=== PATIENT | female | born 1990 | race Caucasian/White ===

== ENCOUNTER 2016-09-17 00:25 | Emergency (ER) | payer OTHER, MEDICAID ==
[2016-09-17 02:40] LABS: ABSOLUTE EOSINOPHILS # (AUTO) 0.1 10^3/uL (0.0-0.6); ABSOLUTE LYMPHOCYTES (AUTO) 1.9 10^3/uL (0.5-4.7); ABSOLUTE MONOCYTES (AUTO) 0.8 10^3/uL (0.1-1.4); ABSOLUTE NEUT (AUTO) 5.7 10^3/uL (1.7-8.2); BASOPHILS % (AUTO) 0.4 % (0-2); HEMATOCRIT 35.4 % (36.0-47.0); HEMOGLOBIN 12.2 g/dL (12.0-15.5); HGB HCT DIFFERENCE 1.2; LYMPHOCYTES % (AUTO) 22.8 % (13-45); MEAN CORPUSCULAR HEMOGLOBIN 28.9 pg (27.0-33.4); MEAN CORPUSCULAR HGB CONC 34.4 g/dL (32.0-36.0); MEAN CORPUSCULAR VOLUME 84 fl (80-97); MONOCYTES % (AUTO) 9.2 % (3-13); RED BLOOD COUNT 4.21 10^6/uL (3.72-5.28); RED CELL DISTRIBUTION WIDTH 14.4 % (11.5-14.0); SEGMENTED NEUTROPHILS % (AUTO) 66.6 % (42-78); WHITE BLOOD COUNT 8.5 10^3/uL (4.0-10.5)
[2016-09-17 02:50] LABS: ALANINE AMINOTRANSFERASE 36 U/L (9-52); ALBUMIN 4.4 g/dL (3.5-5.0); ALKALINE PHOSPHATASE 66 U/L (38-126); ANION GAP 12 (5-19); APPEARANCE,URINE CLEAR; ASPARTATE AMINO TRANSFERASE 22 U/L (14-36); BILIRUBIN,TOTAL 0.5 mg/dL (0.2-1.3); BILIRUBIN,URINE NEGATIVE (NEGATIVE); BLOOD UREA NITROGEN 5 mg/dL (7-20); CALCIUM 9.4 mg/dL (8.4-10.2); CARBON DIOXIDE 21 mmol/L (22-30); CHLORIDE 106 mmol/L (98-107); CREATININE RESULT 0.49 mg/dL (0.52-1.25); GLUCOSE 57 mg/dL (75-110); GLUCOSE, URINE NEGATIVE (NEGATIVE); KETONES,URINE NEGATIVE (NEGATIVE); LEUKOCYTE ESTERASE,URINE NEGATIVE (NEGATIVE); NITRITE,URINE NEGATIVE (NEGATIVE); POTASSIUM 3.5 mmol/L (3.6-5.0); PROTEIN,URINE NEGATIVE (NEGATIVE); SODIUM 139.3 mmol/L (137-145); TOTAL PROTEIN 7.5 g/dL (6.3-8.2); URINE SPECIFIC GRAVITY 1.025; UROBILINOGEN,URINE NEGATIVE mg/dL (<2.0)
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
[2016-09-17 05:28] VITALS: BP 134/89
== END 2016-09-17 05:15 | disposition home or self-care (01) ==
LOC: ER 00:25
DX: O20.9 Hemorrhage in early pregnancy, unspecified (principal); Z3A.15 15 weeks gestation of pregnancy; Z88.0 Allergy status to penicillin; Z90.49 Acquired absence of other specified parts of digestive tract
CPT/HCPCS: 36415; 76805; 80053; 81001; 84702; 85025; 86900; 86901; 93976; 99284

== ENCOUNTER 2017-01-18 16:11 | Emergency (ER) | payer MEDICAID ==
[2017-01-18 17:42] LABS: ABSOLUTE EOSINOPHILS # (AUTO) 0.1 10^3/uL (0.0-0.6); ABSOLUTE LYMPHOCYTES (AUTO) 1.3 10^3/uL (0.5-4.7); ABSOLUTE MONOCYTES (AUTO) 0.9 10^3/uL (0.1-1.4); ABSOLUTE NEUT (AUTO) 4.9 10^3/uL (1.7-8.2); BASOPHILS % (AUTO) 0.5 % (0-2); EOSINOPHILS % (AUTO) 0.8 % (0-6); HEMATOCRIT 35.5 % (36.0-47.0); HEMOGLOBIN 11.7 g/dL (12.0-15.5); HGB HCT DIFFERENCE -0.4; LYMPHOCYTES % (AUTO) 17.8 % (13-45); MEAN CORPUSCULAR HEMOGLOBIN 27.5 pg (27.0-33.4); MEAN CORPUSCULAR HGB CONC 33.1 g/dL (32.0-36.0); MEAN CORPUSCULAR VOLUME 83 fl (80-97); MONOCYTES % (AUTO) 12.1 % (3-13); RED BLOOD COUNT 4.28 10^6/uL (3.72-5.28); RED CELL DISTRIBUTION WIDTH 13.8 % (11.5-14.0); SEGMENTED NEUTROPHILS % (AUTO) 68.8 % (42-78); WHITE BLOOD COUNT 7.2 10^3/uL (4.0-10.5)
--- NOTE | 2017-01-18 17:56 | RADIOLOGY REPORT (SQ) ---
EXAM DESCRIPTION: CHEST PA/LAT COMPLETED DATE/TIME: 01/18/2017 5:48 pm REASON FOR STUDY: Heartburn and chest pain COMPARISON: 10/25/2014 EXAM PARAMETERS: NUMBER OF VIEWS: two views TECHNIQUE: Digital Frontal and Lateral radiographic views of the chest acquired. RADIATION DOSE: NA LIMITATIONS: none FINDINGS: LUNGS AND PLEURA: No opacities, masses or pneumothorax. No pleural effusion. MEDIASTINUM AND HILAR STRUCTURES: No masses or contour abnormalities. HEART AND VASCULAR STRUCTURES: Heart normal size. No evidence for failure. BONES: No acute findings. HARDWARE: None in the chest. OTHER: No other significant finding. IMPRESSION: NO SIGNIFICANT RADIOGRAPHIC FINDING IN THE CHEST. TECHNICAL DOCUMENTATION: JOB ID: [id number] [employer]- All Rights Reserved
[2017-01-18 17:57] LABS: APPEARANCE,URINE CLOUDY; BILIRUBIN,URINE NEGATIVE (NEGATIVE); GLUCOSE, URINE NEGATIVE (NEGATIVE); KETONES,URINE 20 mg/dL (NEGATIVE); LEUKOCYTE ESTERASE,URINE NEGATIVE (NEGATIVE); NITRITE,URINE NEGATIVE (NEGATIVE); PROTEIN,URINE 30 mg/dL (NEGATIVE); URINE SPECIFIC GRAVITY 1.034; UROBILINOGEN,URINE NEGATIVE mg/dL (<2.0)
[2017-01-18 18:00] LABS: ALANINE AMINOTRANSFERASE 40 U/L (9-52); ALBUMIN 3.5 g/dL (3.5-5.0); ALKALINE PHOSPHATASE 189 U/L (38-126); ANION GAP 12 (5-19); ASPARTATE AMINO TRANSFERASE 61 U/L (14-36); BILIRUBIN,DIRECT 0.3 mg/dL (0.0-0.4); BILIRUBIN,TOTAL 0.5 mg/dL (0.2-1.3); BLOOD UREA NITROGEN 4 mg/dL (7-20); CALCIUM 8.7 mg/dL (8.4-10.2); CARBON DIOXIDE 18 mmol/L (22-30); CHLORIDE 107 mmol/L (98-107); CREATININE RESULT 0.48 mg/dL (0.52-1.25); GLUCOSE 87 mg/dL (75-110); LIPASE 50.3 U/L (23-300); POTASSIUM 3.5 mmol/L (3.6-5.0); SODIUM 137.4 mmol/L (137-145); TOTAL PROTEIN 7.1 g/dL (6.3-8.2)
[2017-01-18 18:12] LABS: CREATINE KINASE MB < 0.22 ng/mL (<4.55); TROPONIN I < 0.012 ng/mL
[2017-01-18] MEDS ORDERED: NORMAL SALINE 1000 ML 1,000 ML IV ONE (19:12)
[2017-01-18] MEDS ORDERED: ONDANSETRON HCL INJ/PF 4 MG/2 ML SDV IV ONE (19:12)
--- NOTE | 2017-01-18 20:03 | ER Document Report ---
ED GI/ - General Mode of Arrival: Ambulatory Information source: Patient TRAVEL OUTSIDE OF THE [place] IN LAST 30 DAYS: No - HPI Patient complains to provider of: Vomiting, Other - acid reflux Onset: Other - 3 weeks ago Associated symptoms: Other - see notes above <NATHALIA HAYES - Last Filed: 01/19/17 00:05> <VERONICAJANISBHUPENDRA - Last Filed: 01/19/17 00:10> - General Chief Complaint: Nausea/Vomiting Stated Complaint: VOMITING Time Seen by Provider: 01/18/17 19:50 Notes: 26 year old female presents to the ED complaining of heartburn and vomiting that started 3 weeks ago. Patient reports that the acid reflux is causing her to vomit 'acid' which is irritating her throat. Patient has tried Tums and Zantac with no relief. [facility] where she was given Reglan, but states that it has not helped. Patient is only able to sleep on her left side. (NATHALIA HAYES) - Related Data Allergies/Adverse Reactions: Penicillins Allergy (Verified 01/18/17 16:29) topiramate [From Topamax] Allergy (Verified 01/18/17 16:29) Past Medical History - General Information source: Patient - Social History Smoking Status: Never Smoker Chew tobacco use (# tins/day): No Frequency of alcohol use: None Drug Abuse: None Family History: Reviewed & Not Pertinent Patient has suicidal ideation: No Patient has homicidal ideation: No - Past Medical History Cardiac Medical History: Reports: Hx Hypertension Pulmonary Medical History: Reports: Hx Bronchitis Renal/ Medical History: Denies: Hx Peritoneal Dialysis Past Surgical History: Reports: Hx Section - x2, Hx Cholecystectomy - Immunizations Hx Diphtheria, Pertussis, Tetanus Vaccination: Yes <NATHALIA HAYES - Last Filed: 01/19/17 00:05> Review of Systems - Review of Systems Constitutional: No symptoms reported EENT: See HPI, Throat pain Cardiovascular: No symptoms reported Respiratory: No symptoms reported Gastrointestinal: See HPI, Vomiting, Other - acid reflux Genitourinary: No symptoms reported Female Genitourinary: No symptoms reported Musculoskeletal: No symptoms reported Skin: No symptoms reported Hematologic/Lymphatic: No symptoms reported Neurological/Psychological: No symptoms reported -: Yes All other systems reviewed and negative <NATHALIA HAYES - Last Filed: 01/19/17 00:05> Physical Exam <HAYES,NATHALIA - Last Filed: 01/19/17 00:05> <BHUPENDRA PACKER - Last Filed: 01/19/17 00:10> - Vital signs Vitals: Temp Pulse Resp BP Pulse Ox 98.1 F 122 H 18 148/98 H 98 01/18/17 16:30 01/18/17 16:30 01/18/17 16:30 01/18/17 16:30 01/18/17 16:30 - Notes Notes: GENERAL: Alert, interacts well. No acute distress. HEAD: Normocephalic, atraumatic. EYES: Pupils equal, round, and reactive to light. Extraocular movements intact. ENT: Oral mucosa moist, tongue midline. NECK: Full range of motion. Supple. Trachea midline. LUNGS: Clear to auscultation bilaterally, no wheezes, rales, or rhonchi. No respiratory distress. HEART: Regular rhythm, but mildly tachycardic. 1/6 systolic murmur. No gallops or rubs. ABDOMEN: Gravid consistent with dates. Soft, non-tender. Non-distended. EXTREMITIES: Moves all 4 extremities spontaneously. No edema. No cyanosis. NEUROLOGICAL: Alert and oriented x3. Normal speech. PSYCH: Normal affect, normal mood. SKIN: Warm, dry, normal turgor. No rashes or lesions noted. (NATHALIA HAYES) Course - Laboratory Result Diagrams: 01/18/17 17:30 01/18/17 17:30 <NATHALIA HAYES - Last Filed: 01/19/17 00:05> - Laboratory Result Diagrams: 01/18/17 17:30 01/18/17 17:30 <BHUPENDRA PACKER - Last Filed: 01/19/17 00:10> - Re-evaluation Re-evalutation: 01/18/17 20:19 CBC shows anemia with hemoglobin 11.7, CMP shows low CO2 at 18, patient was hydrated with a liter normal saline, LFTs only slightly elevated and no evidence of preeclampsia, enzymes negative, chest x-ray no acute process. Pain decreased with GI cocktail. Patient will be started on Zantac twice a day, counseled on diet for heartburn and discharged home. (BHUPENDRA PACKER) - Vital Signs Vital signs: Temp Pulse Resp BP Pulse Ox 97.1 F 90 15 146/89 H 98 01/18/17 20:50 01/18/17 20:50 01/18/17 20:50 01/18/17 20:50 01/18/17 16:30 - Laboratory Laboratory results interpreted by me: 01/18/17 01/18/17 01/18/17 17:20 17:30 17:30 Hgb 11.7 L Hct 35.5 L Potassium 3.5 L Carbon Dioxide 18 L BUN 4 L Creatinine 0.48 L AST 61 H Alkaline Phosphatase 189 H Urine Protein 30 H Urine Ketones 20 H Urine Ascorbic Acid 20 H Discharge <NATHALIA HAYES - Last Filed: 01/19/17 00:05> <BHUPENDRA PACKER - Last Filed: 01/19/17 00:10> - Discharge Clinical Impression: Vomiting affecting , Dehydration during , Heartburn during in third trimester induced hypertension Qualifiers: Trimester: third trimester Qualified Code(s): O13.3 - Gestational [- induced] hypertension without significant proteinuria, third trimester Condition: Stable Disposition: HOME, SELF-CARE Additional Instructions: Reflux Disease (GERD) Gastro-Esophageal Reflux Disease (GERD) is caused by stomach acid refluxing back up into the esophagus. The valve at the end of the esophagus may be weak. This is common in persons with a hiatal hernia. GERD symptoms can include indigestion, chest pain, heartburn, or food "sticking." Certain foods, alcohol, and aspirin can make GERD worse. Treatment depends on the severity. Usually, antacids or acid-suppressing medicines are used. When the esophagus is acutely inflamed, the physician will often prescribe membrane-protective drugs such as Carafate. Some patients benefit from medication such as Reglan that tightens the valve at the top of the stomach. Avoid those foods that bring on your symptoms. For many people, these foods are coffee, chocolate, onions, garlic, and carbonated drinks. Don't use alcohol, aspirin, caffeine, or tobacco. Don't eat late at night -- within 4 hours of bedtime. Don't over-eat. If necessary, elevate the head of your bed about 4 inches so that stomach acid will not roll up into your esophagus. Call the doctor if you develop severe chest pain, inability to swallow fluids, fever, or worsening symptoms. Please take Zantac 150 mg twice a day. Prescriptions: Ondansetron [Zofran Odt 4 mg Tablet] 1 - 2 tab PO Q4H PRN #15 tab.rapdis PRN Reason: For Nausea/Vomiting Referrals: LUKE HENNING MD [Primary Care Provider] - Follow up in 3-5 days Scribe Attestation: 01/19/17 00:10 I personally performed the services described in the documentation, reviewed and edited the documentation which was dictated to the scribe in my presence, and it accurately records my words and actions. (BHUPENDRA PACKER) Scribe Documentation - Scribe Written by Juan:: Juan Rosenthal, 01/18/20172005 acting as scribe for :: Juanita <NATHALIA HAYES - Last Filed: 01/19/17 00:05>
[2017-01-18] MEDS ORDERED: LIDOCAINE 2% VISCOUS SOLN 20 ML UDCUP PO ONE (20:17)
[2017-01-18] MEDS ORDERED: METOCLOPRAMIDE HCL ORAL SOLN 10 MG/10 ML UDCUP PO ONE (20:17)
[2017-01-18] MEDS ORDERED: MAG HYDROX/AL HYDROX/SIMETH SUSP 30 ML UDCUP PO ONE (20:17)
[2017-01-18 20:51] VITALS: BP 146/89
--- NOTE | 2017-01-18 22:20 | EKG REPORT ---
SEVERITY:- OTHERWISE NORMAL ECG - SINUS TACHYCARDIA : Confirmed by: Sanam Mishra 18-Jan-2017 22:19:52
== END 2017-01-18 20:50 | disposition home or self-care (01) ==
LOC: ER 16:11
DX: O13.3 Gestational [pregnancy-induced] hypertension without significant proteinuria, third trimester (principal); O21.1 Hyperemesis gravidarum with metabolic disturbance; R12 Heartburn; Z88.0 Allergy status to penicillin; Z90.49 Acquired absence of other specified parts of digestive tract
CPT/HCPCS: 93005; 99284; 96374; 36415; 82553; 83690; 85025; 80053; 81001; 84484; 71020; 93010; J3490 ×3; J2405; J7030

== ENCOUNTER 2017-01-19 09:01 | Outpatient (CLI) | payer MEDICAID ==
[2017-01-19 09:33] LABS: APPEARANCE,URINE SLIGHTLY-CLOUDY; BILIRUBIN,URINE SMALL (NEGATIVE); GLUCOSE, URINE NEGATIVE (NEGATIVE); KETONES,URINE NEGATIVE (NEGATIVE); LEUKOCYTE ESTERASE,URINE NEGATIVE (NEGATIVE); NITRITE,URINE NEGATIVE (NEGATIVE); PROTEIN,URINE NEGATIVE (NEGATIVE); URINE SPECIFIC GRAVITY 1.019; UROBILINOGEN,URINE NEGATIVE mg/dL (<2.0)
[2017-01-19 09:49] LABS: URINE METHADONE SCREEN NEGATIVE; URINE OPIATES LOW NEGATIVE; URINE PHENCYCLIDINE SCREEN NEGATIVE
[2017-01-19 09:53] LABS: URINE BARBITURATES SCREEN UNCONFIRMED POSITIVE
--- NOTE | 2017-01-19 10:39 | Non Stress Test Report ---
Non Stress Test Datetime Report Generated by CPN: 01/19/2017 10:38 DEMOGRAPHIC EGA NST: 32.0 INDICATION Indication for Study: Ordered by Provider MONITORING Monitor Explained: Monitor Explained; Test Explained; Patient Verbalized Understanding Time on Monitor: 01/19/2017 10:10 Time off Monitor: 01/19/2017 10:30 NST Duration: 20 NST INTERVENTIONS NST Interventions: PO Hydration; Reposition Patient Physician Notified NST: Dr. Mann BABY A: [id number] BABY A Movement : Present Contraction Frequency : 0 FHR Baseline : 140 Accelerations : 15X15 Decelerations : None Variability : Moderate 6-25bpm NST Review: Meets Criteria for Reactive NST NST Review and Verified By : GOVIND Piper Results: Reactive NST REPORT Report Trigger: Send Report
== END 2017-01-19 10:47 | disposition home or self-care (01) ==
LOC: LC 09:01
PROVIDERS: ATTEND Obstetrics & Gynecology
DX: Z34.93 Encounter for supervision of normal pregnancy, unspecified, third trimester (principal)
CPT/HCPCS: 59025; 80307; 81001

== ENCOUNTER 2017-02-28 14:00 | Outpatient (CLI) | payer MEDICAID ==
[2017-02-28 14:46] LABS: ABSOLUTE EOSINOPHILS # (AUTO) 0.2 10^3/uL (0.0-0.6); ABSOLUTE LYMPHOCYTES (AUTO) 1.3 10^3/uL (0.5-4.7); ABSOLUTE MONOCYTES (AUTO) 0.7 10^3/uL (0.1-1.4); ABSOLUTE NEUT (AUTO) 7.1 10^3/uL (1.7-8.2); BASOPHILS % (AUTO) 0.3 % (0-2); EOSINOPHILS % (AUTO) 2.4 % (0-6); LYMPHOCYTES % (AUTO) 14.1 % (13-45); MEAN CORPUSCULAR HEMOGLOBIN 27.4 pg (27.0-33.4); MEAN CORPUSCULAR HGB CONC 34.5 g/dL (32.0-36.0); MEAN CORPUSCULAR VOLUME 79 fl (80-97); MONOCYTES % (AUTO) 7.8 % (3-13); RED BLOOD COUNT 3.66 10^6/uL (3.72-5.28); SEGMENTED NEUTROPHILS % (AUTO) 75.4 % (42-78); WHITE BLOOD COUNT 9.4 10^3/uL (4.0-10.5)
[2017-02-28 14:59] LABS: ALANINE AMINOTRANSFERASE 24 U/L (9-52); ALBUMIN 3.5 g/dL (3.5-5.0); ALKALINE PHOSPHATASE 195 U/L (38-126); ANION GAP 11 (5-19); ASPARTATE AMINO TRANSFERASE 17 U/L (14-36); BILIRUBIN,DIRECT 0.3 mg/dL (0.0-0.4); BILIRUBIN,TOTAL 0.4 mg/dL (0.2-1.3); BLOOD UREA NITROGEN 8 mg/dL (7-20); CALCIUM 8.6 mg/dL (8.4-10.2); CARBON DIOXIDE 19 mmol/L (22-30); CHLORIDE 108 mmol/L (98-107); CREATININE RESULT 0.43 mg/dL (0.52-1.25); GLUCOSE 100 mg/dL (75-110); LDH 366 U/L (313-618); POTASSIUM 3.7 mmol/L (3.6-5.0); SODIUM 138.1 mmol/L (137-145); TOTAL PROTEIN 6.9 g/dL (6.3-8.2); URIC ACID 3.5 mg/dL (2.5-6.2)
[2017-02-28 15:01] LABS: APPEARANCE,URINE SLIGHTLY-CLOUDY; BILIRUBIN,URINE NEGATIVE (NEGATIVE); CALCIUM OXALATE CRYSTALS,URINE FEW /HPF; GLUCOSE, URINE NEGATIVE (NEGATIVE); KETONES,URINE NEGATIVE (NEGATIVE); LEUKOCYTE ESTERASE,URINE NEGATIVE (NEGATIVE); NITRITE,URINE NEGATIVE (NEGATIVE); PROTEIN,URINE NEGATIVE (NEGATIVE); URINE SPECIFIC GRAVITY 1.027
[2017-02-28] MEDS ORDERED: ACETAMINOPHEN 325 MG TABLET PO ONE (15:23)
[2017-02-28 15:24] LABS: URINE BARBITURATES SCREEN NEGATIVE; URINE METHADONE SCREEN NEGATIVE; URINE OPIATES LOW NEGATIVE; URINE PHENCYCLIDINE SCREEN NEGATIVE
[2017-02-28 15:42] LABS: URINE CREATININE 184.7 mg/dL (16-327); URINE PROTEIN 8.5 mg/dL (<12)
[2017-02-28] MEDS ORDERED: ACETAMINOPHEN 325 MG TABLET ONE (15:52)
--- NOTE | 2017-02-28 16:12 | Non Stress Test Report ---
Non Stress Test Datetime Report Generated by CPN: 02/28/2017 16:12 DEMOGRAPHIC EGA NST: 37.5 INDICATION Indication for Study: Ordered by Provider; Other Indication for Study (NST) Other: Labor Check MONITORING Monitor Explained: Monitor Explained; Test Explained; Patient Verbalized Understanding Time on Monitor: 02/28/2017 14:22 Time off Monitor: 02/28/2017 15:46 NST Duration: 84 NST INTERVENTIONS NST Interventions: None Physician Notified NST: Dr Mann BABY A: [id number] BABY A Movement : Present Contraction Frequency : none FHR Baseline : 150 Accelerations : 15X15 Decelerations : None Variability : Moderate 6-25bpm NST Review: Meets Criteria for Reactive NST NST Review and Verified By : Jovi bueno, RN NST Results: Reactive NST REPORT Report Trigger: Send Report
== END 2017-02-28 15:56 | disposition home or self-care (01) ==
LOC: LC 14:00
PROVIDERS: ATTEND Obstetrics & Gynecology
PROC: 4A1HXCZ Monitoring of Products of Conception, Cardiac Rate, External Approach (ICD-10-PCS; principal; 2017-02-28)
DX: Z36 Encounter for antenatal screening of mother (principal); Z3A.37 37 weeks gestation of pregnancy
CPT/HCPCS: 59025; 36415; 83615; 84156; 84550; 82570; 85025; 80053; 81001; 80307; J3490

== ENCOUNTER 2017-03-03 11:44 | Inpatient (IN) | payer MEDICAID ==
[~2017-03-03 11:44] MED LIST: PHENYLEPHRINE HCL INJ/PF 10 MG/1 ML SDV ONE
[2017-03-03] MEDS: RINGERS SOLUTION,LACTATED 1,000 ML IV PRN ×2 (12:51→18:53)
[2017-03-03 13:10] LABS: URINE BARBITURATES SCREEN NEGATIVE; URINE METHADONE SCREEN NEGATIVE; URINE OPIATES LOW NEGATIVE; URINE PHENCYCLIDINE SCREEN NEGATIVE
[2017-03-03 13:22] LABS: HEMATOCRIT 29.9 % (36.0-47.0); HGB HCT DIFFERENCE 0.1; MEAN CORPUSCULAR HEMOGLOBIN 26.9 pg (27.0-33.4); MEAN CORPUSCULAR HGB CONC 33.4 g/dL (32.0-36.0); MEAN CORPUSCULAR VOLUME 80 fl (80-97); RED BLOOD COUNT 3.71 10^6/uL (3.72-5.28); RED CELL DISTRIBUTION WIDTH 15.2 % (11.5-14.0); WHITE BLOOD COUNT 8.2 10^3/uL (4.0-10.5)
[2017-03-03 13:26] LABS: URINE CREATININE 55.5 mg/dL (16-327); URINE PROTEIN 15.2 mg/dL (<12)
[2017-03-03] MEDS ORDERED: MISOPROSTOL 0.2 MG TABLET ONE (13:34)
[2017-03-03] MEDS ORDERED: CEFAZOLIN 2 GM/D5W RTU 0 GM/0 ML RTUPB IV ONE (13:34)
[2017-03-03] MEDS ORDERED: CITRIC ACID/SODIUM CITRATE ORAL SOLN 15 ML UDCUP ONE ×2 (13:34→14:56)
[2017-03-03 13:40] LABS: ALANINE AMINOTRANSFERASE 17 U/L (9-52); ALBUMIN 3.6 g/dL (3.5-5.0); ALKALINE PHOSPHATASE 202 U/L (38-126); ANION GAP 11 (5-19); ASPARTATE AMINO TRANSFERASE 18 U/L (14-36); BILIRUBIN,DIRECT 0.3 mg/dL (0.0-0.4); BILIRUBIN,TOTAL 0.5 mg/dL (0.2-1.3); BLOOD UREA NITROGEN 2 mg/dL (7-20); CALCIUM 9.3 mg/dL (8.4-10.2); CARBON DIOXIDE 20 mmol/L (22-30); CHLORIDE 106 mmol/L (98-107); CREATININE RESULT 0.41 mg/dL (0.52-1.25); GLUCOSE 77 mg/dL (75-110); LDH 381 U/L (313-618); POTASSIUM 4.1 mmol/L (3.6-5.0); SODIUM 136.6 mmol/L (137-145); URIC ACID 3.9 mg/dL (2.5-6.2)
[2017-03-03] MEDS ORDERED: KETOROLAC TROMETHAMINE INJ/PF 30 MG/1 ML SDV ONE (14:53)
[2017-03-03] MEDS ORDERED: FENTANYL CITRATE INJ/PF 100 MCG/2 ML AMPUL ONE (14:53)
[2017-03-03] MEDS ORDERED: OXYTOCIN 10 UNIT/ML VIAL ONE (14:53)
[2017-03-03] MEDS ORDERED: FENTANYL CITRATE INJ/PF 250 MCG/5 ML AMPULE ONE (14:53)
[2017-03-03] MEDS ORDERED: OXYTOCIN/NORMAL SALINE 20 UNIT/1,000 ML RTUINJ ONE (14:54)
[2017-03-03] MEDS ORDERED: EPHEDRINE SULFATE INJ 50 MG/1 ML AMPULE ONE (14:54)
[2017-03-03] MEDS ORDERED: ONDANSETRON HCL INJ/PF 4 MG/2 ML SDV ONE (14:54)
[2017-03-03] MEDS ORDERED: MIDAZOLAM 2 MG/2 ML INJ ONE (14:54)
[2017-03-03] MEDS ORDERED: ACETAMINOPHEN 100 ML IV ONE (14:54)
[2017-03-03] MEDS ORDERED: CEFAZOLIN 2 GM/D5W RTU 2 GM/50 ML RTUPB IV ONE (14:56)
[2017-03-03] MEDS ORDERED: NALBUPHINE HCL INJ 10 MG/1 ML AMPULE ONE (17:40)
--- NOTE | 2017-03-03 17:53 | Brief Operative Note ---
BRIEF OPERATIVE REPORT DATE OF SURGERY: 03/03/17 TIME OF SURGERY: 17:00 PREOPERATIVE DIAGNOSIS: CHTN with superimposed preE, H/o C/S x 2, PUND at 38+ 1ega POSTOPERATIVE DIAGNOSIS: FABIOLA - delivered SURGEON: CARLIE ROMO FINDINGS: Normal tubes and ovaries, very thin lower uterine segment - see through in areas, VMI delivered with Apgars 7/9, Weight 7/9, normal uterus, no fibroids, IVF 2000ml, UOP 500ml COMPLICATIONS: None ESTIMATED BLOOD LOSS: 500ml TISSUE REMOVED OR ALTERED: placenta and cord sent to pathology TECHNICAL PROCEDURE: Repeat LTCS
[2017-03-03] MEDS ORDERED: DIPH/PERTUSS(ACELL)/TETANUS VAC/PF 0.5 ML SYR (>=10YO) IM PRN (17:55)
[2017-03-03] MEDS ORDERED: OXYCODONE-ACETAMINOPHEN 5-325 MG TABLET PO PRN (17:55)
[2017-03-03] MEDS ORDERED: OXYTOCIN/NORMAL SALINE 1,000 ML IV PRN (17:55)
[2017-03-03] MEDS ORDERED: PROMETHAZINE HCL INJ 25 MG/1 ML VIAL IV PRN (17:55)
[2017-03-03] MEDS ORDERED: SIMETHICONE 80 MG TAB.CHEW PO PRN (17:55)
[2017-03-03] MEDS ORDERED: MEASLES,MUMPS&RUBELLA VACC/PF 0.5 ML VIAL SUBCUT PRN (17:55)
[2017-03-03] MEDS ORDERED: ACETAMINOPHEN 325 MG TABLET PO PRN (17:55)
[2017-03-03] MEDS ORDERED: ACETAMINOPHEN 100 ML IV PRN (17:55)
[2017-03-03] MEDS ORDERED: MORPHINE SULFATE 10 MG/ML INJ ONE ×2 (18:18→19:04)
[2017-03-03] MEDS: DOCUSATE SODIUM 100 MG CAPSULE PO SCH (18:24)
[2017-03-03] MEDS ORDERED: PROPOFOL INJ 200 MG/20 ML VIAL IV ONE (18:25)
--- NOTE | 2017-03-03 19:50 | Admission Physical ---
Datetime Report Generated by CPN: 03/03/2017 19:50 CURRENT ADMISSION Chief Complaint: Signs/Symptoms Gestational HTN Admit Plan: Admit to Unit; Initiate Section Protocol ALLERGIES Medication Allergies: Yes Medication Allergies: Penicillins (03/03/2017); topiramate (03/03/2017) Medication Allergies: Penicillins (01/18/2017); topiramate (01/18/2017) Latex: No Latex Allergies Food Allergies: none OBSTETRICAL HISTORY EDC: 03/16/2017 00:00 : 4 Para: 2 Term: 1 : 1 SAB: 1 IAB: 0 Ectopic: 0 Livin Cesareans: 2 VBACs: 0 Multiple Births: 0 Gestational Diabetes: No Rh Sensitization: No Incompetent Cervix: No VA: No Infertility: No ART Treatment: No Uterine Anomaly: Yes IUGR: No Hx Previous C/S: Yes Macrosomia: No Hx Loss/Stillborn: No PIH: Yes Hx : No Placenta Previa/Abruption: No Depression/PP Depression: No PTL/PROM: Yes Post Hemorrhage: No Current Procedures: Ultrasound; NST Obstetrical History Comments: G1- 34 weeks C/S PIH G2-SAB 38 weeks C/S PIH SEE RECORDS Alcohol: No Marijuana : No Cocaine: No Other Illicit Drugs: No Cigarettes: Never Smoker. 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 Surgery: No Heart Disease: No Hosp/Surgery: Yes Autoimmune Disorder: No Anesthetic Complications: No Kidney Disease: No Abnormal Pap Smear: No Neuro/Epilepsy: No Psychiatric Disorders: Yes Other Medical Diseases: No Hepatitis/Liver Disease: No Significant Family History: No Varicosities/Phlebitis: No Trauma/Violence : No Thyroid Dysfunction: No Medical History Comments: CHTN; previous C/S x2; gallbladder removed 2012, anxiety, ADHD INFECTIOUS HISTORY Gonorrhea: No Genital Herpes: No Chlamydia: No Tuberculosis: No Syphilis: No Hepatitis: No HIV/AIDS Exposure: No Rash or Viral Illness: No HPV: No PHYSICAL EXAM General: Normal HEENT: Normal Neurologic: Normal Thyroid: Normal Heart: Normal Lungs: Normal Breast: Deferred Back: Normal Abdomen: Normal Genitourinary Exam: Normal Extremities: Normal DTRs: Normal Pelvic Type: Adequate Vital Signs: Reviewed FETUS A EGA: 38.1 Monitoring: External US FHR- Baseline: 135 Variability: Moderate 6-25bpm Accelerations: 15X15 Decelerations: None Presentation: Vertex Admit Comment: 26yo at 38+1ega with known CHTN and severe range BPs. Pt also reports DAVISON and blurry vision. DAVISON unresolved with fioricet and rest. Pt currently on Methyldopa 250mg po BID and reports last use this morning. Will likely change meds to procardia or labetalol which is more effective. Platlets normal. GBS negative. Plan for REPEAT C/S. Pt undecided re: contraception and declines BTL at this time. R/B/A reviewed and will proceed with repeat C/S, CMP and P:C pending. PLANS FOR LABOR AND DELIVERY Labor and Delivery: None Pain Management: Epidural; Spinal Feeding Preference: Formula Benefit of Breast Feed Discussed: Yes Circumcision: No INFORMED CONSENT Informed Consent Obtained: Section Delivery; Risks, Benefits and Alternatives Discussed Signature: with User ID: [email or web address]
[2017-03-03] MEDS: HYDROMORPHONE HCL INJ/PF 2 MG/ML AMPULE IV PRN ×2 (20:30→23:37)
[2017-03-03] MEDS: LABETALOL HCL 200 MG TABLET PO SCH (21:33)
[2017-03-04] MEDS: HYDROMORPHONE HCL INJ/PF 2 MG/ML AMPULE IV PRN (02:38)
[2017-03-04 06:44] LABS: HEMATOCRIT 26.3 % (36.0-47.0); HEMOGLOBIN 8.9 g/dL (12.0-15.5); HGB HCT DIFFERENCE 0.4; MEAN CORPUSCULAR HEMOGLOBIN 26.7 pg (27.0-33.4); MEAN CORPUSCULAR HGB CONC 33.6 g/dL (32.0-36.0); MEAN CORPUSCULAR VOLUME 79 fl (80-97); RED BLOOD COUNT 3.32 10^6/uL (3.72-5.28); RED CELL DISTRIBUTION WIDTH 15.4 % (11.5-14.0); WHITE BLOOD COUNT 11.2 10^3/uL (4.0-10.5)
[2017-03-04] MEDS: DOCUSATE SODIUM 100 MG CAPSULE PO SCH ×2 (08:56→17:39)
[2017-03-04] MEDS: PRENATAL VITAMIN W-O CA NO5/FE FUMARATE/FA CAPSULE PO SCH (08:56)
[2017-03-04] MEDS: OXYCODONE-ACETAMINOPHEN 5-325 MG TABLET PO PRN ×4 (08:57→22:50)
[2017-03-04] MEDS: LABETALOL HCL 200 MG TABLET PO SCH ×2 (08:57→21:38)
[2017-03-04] MEDS ORDERED: IBUPROFEN 800 MG TABLET PO SCH (09:00)
[2017-03-04] MEDS: IBUPROFEN 800 MG TABLET PO SCH ×3 (11:34→23:56)
--- NOTE | 2017-03-04 11:38 | PDOC PROGRESS REPORT ---
Subjective-OB Subjective: Post Delivery Day:1 26 year old G4 now P3 s/p Repeat ppd1. Pt. ambulating and voiding without difficulty. Denies any needs at this time Physical Exam (OB) Vital Signs: Temp Pulse Resp BP Pulse Ox 98.0 F 91 16 110/77 98 03/04/17 08:17 03/04/17 08:17 03/04/17 08:17 03/04/17 08:17 03/04/17 08:17 Intake & Output 03/03/17 03/04/17 03/05/17 06:59 06:59 06:59 Intake Total 340 Output Total 650 Balance -310 Weight 73.65 kg - General General Appearance: Appears well In distress: None - PIH/Pre-Eclampsia DTR's: 1 + Clonus: Negative Headache: Absent Epigastric Pain: No Visual Changes: No - Dressing Removed: No Incision: Well Approximated Closure Type: Surgical Glue - Lochia Lochia Amount: Small 10-25 ml Lochia Color: Rubra/Red - Abdomen Description: Soft, Round Hernia Present: No Fundal Description: Firm, Midline Fundal Height: u/u - u/2 - Respiratory Respiratory Status: No respiratory distress - Extremities Upper extremity: Normal inspection Lower extremities: Normal inspection - Neurological Cognition: Normal Orientation: AAOx4 - Psychological Associated symptoms: Normal affect, Normal mood Objective-Diagnostic Laboratory: 03/04/17 06:21 03/03/17 12:45 03/03/17 03/03/17 03/03/17 12:45 12:45 12:45 WBC 8.2 RBC 3.71 L Hgb 10.0 L Hct 29.9 L MCV 80 MCH 26.9 L MCHC 33.4 RDW 15.2 H Plt Count 298 Sodium 136.6 L Potassium 4.1 Chloride 106 Carbon Dioxide 20 L Anion Gap 11 BUN 2 L Creatinine 0.41 L Est GFR ( Amer) > 60 Est GFR (Non-Af Amer) > 60 Glucose 77 Uric Acid 3.9 Calcium 9.3 Total Bilirubin 0.5 AST 18 ALT 17 Alkaline Phosphatase 202 H Total Protein 7.0 Albumin 3.6 Blood Type O POSITIVE Antibody Screen NEGATIVE 03/04/17 06:21 WBC 11.2 H RBC 3.32 L Hgb 8.9 L Hct 26.3 L MCV 79 L MCH 26.7 L MCHC 33.6 RDW 15.4 H Plt Count 276 Sodium Potassium Chloride Carbon Dioxide Anion Gap BUN Creatinine Est GFR ( Amer) Est GFR (Non-Af Amer) Glucose Uric Acid Calcium Total Bilirubin AST ALT Alkaline Phosphatase Total Protein Albumin Blood Type Antibody Screen Assessment and Plan(PN) - Assessment and Plan (1) Status post repeat low transverse section Is this a current diagnosis for this admission?: YesPlan: continue stay (2) Chronic hypertension affecting Is this a current diagnosis for this admission?: YesPlan: antihypertensive regimen pp revised by Dr. Ford, continue present management. Continue monitoring and adjust as needed (3) Pre-eclampsia added to pre-existing hypertension Is this a current diagnosis for this admission?: YesPlan: continue stay, medications adjusted by delivering provider. Adjust as needed. (4) Acute blood loss anemia Is this a current diagnosis for this admission?: YesPlan: increase iron in diet and iron supplementation - Time Spent with Patient Time with patient: 15-25 minutes Medications reviewed and adjusted accordingly: Yes - Disposition Anticipated Discharge: Home Within: within 48 hours
[2017-03-05] MEDS: OXYCODONE-ACETAMINOPHEN 5-325 MG TABLET PO PRN ×2 (03:17→08:27)
[2017-03-05] MEDS: IBUPROFEN 800 MG TABLET PO SCH ×2 (05:31→11:23)
[2017-03-05 08:43] VITALS: BP 120/85
--- NOTE | 2017-03-05 09:22 | PDOC DISCHARGE SUMMARY ---
Final Diagnosis Discharge Date: 03/05/17 - Final Diagnosis (1) Status post repeat low transverse section Is this a current diagnosis for this admission?: Yes Discharge Data - Discharge Medication Home Medications: Methyldopa [Aldomet 250 mg Tablet] 250 mg PO BID 01/19/17 Pnv No.122/Iron/Folic Acid [ Multi Tablet] 1 tab PO DAILY 03/03/17 Reason(s) for Admission: Ceasarean Section-Repeat Procedures: None Intrapartum Procedure(s): : Low Cervical, Transverse - Diagnosis Test Laboratory: Temp Pulse Resp BP Pulse Ox 97.4 F 85 16 120/85 100 03/05/17 08:21 03/05/17 08:21 03/05/17 08:21 03/05/17 08:21 03/05/17 08:21 03/03/17 03/03/17 03/04/17 12:00 12:45 06:21 RBC 3.71 L 3.32 L Hgb 10.0 L 8.9 L Hct 29.9 L 26.3 L Urine Opiates Screen NEGATIVE - Discharge information/Instructions Discharge Activity: Balance Activity w/Rest, No Lifting Over 10 Pounds, Pelvic Rest, No tub bath Discharge Diet: Regular Disposition: HOME, SELF-CARE Follow [facility]: [facility] in: 5, Days
[2017-03-05] MEDS: PRENATAL VITAMIN W-O CA NO5/FE FUMARATE/FA CAPSULE PO SCH (09:26)
[2017-03-05] MEDS: LABETALOL HCL 200 MG TABLET PO SCH (09:26)
[2017-03-05] MEDS: DOCUSATE SODIUM 100 MG CAPSULE PO SCH (09:26)
== END 2017-03-05 12:40 | disposition home or self-care (01) | DRG 765 ==
LOC: LC 11:44 → LR 13:35 → 2S 19:48
PROVIDERS: ADMIT Student in an Organized Health Care Education/Training Program; ATTEND Student in an Organized Health Care Education/Training Program
PROC: 10D00Z1 Extraction of Products of Conception, Low, Open Approach (ICD-10-PCS; principal; 2017-03-03)
PROC: 4A1HXCZ Monitoring of Products of Conception, Cardiac Rate, External Approach (ICD-10-PCS; 2017-03-03)
DX: O11.4 Pre-existing hypertension with pre-eclampsia, complicating childbirth (principal); D62 Acute posthemorrhagic anemia; O99.02 Anemia complicating childbirth; O34.211 Maternal care for low transverse scar from previous cesarean delivery; O99.344 Other mental disorders complicating childbirth; N85.8 Other specified noninflammatory disorders of uterus; O75.89 Other specified complications of labor and delivery; F41.9 Anxiety disorder, unspecified; F90.9 Attention-deficit hyperactivity disorder, unspecified type; Z37.0 Single live birth; Z3A.38 38 weeks gestation of pregnancy; Z88.0 Allergy status to penicillin
CPT/HCPCS: 1961; 36415; 80053; 80307; 82570; 83615; 84156; 84550; 85027; 86592; 86850; 86900; 86901; 88307; 94799; C1765; J0131; J0690; J1170; J1885; J2250; J2270; J2300; J2370; J2405; J2590; J2704; J3010; J3490